=== PATIENT | female | born 1965 | race African-American/Black ===

== ENCOUNTER 2017-04-09 12:01 | Emergency (ER) | payer OTHER ==
[2017-04-09 12:08] VITALS: BP 148/97; PULSE 100; TEMP 98
--- NOTE | 2017-04-09 13:48 | PDOC ---
History of Present Illness - General Chief Complaint: Injury Stated Complaint: BACK PAIN Time Seen by Provider: 04/09/17 12:18 History Source: Patient Exam Limitations: No Limitations - History of Present Illness Initial Comments: 04/09/17 13:48 51 yr female c/o pain to left shoulder nad lower back (tailbone) after [place] . No head trauma no loc. pt took motrin with relief. pt is ambulating steady. 04/09/17 14:01 Past History - Past Medical History Allergies/Adverse Reactions: Allergies Allergy/AdvReac Type Severity Reaction Status Date / Time No Known Allergies Allergy Verified 04/09/17 12:08 Home Medications: Ambulatory Orders Glipizide 10 mg PO DAILY 04/09/17 Lisinopril 5 mg PO DAILY 04/09/17 Metformin HCl [Glucophage] 1,000 mg PO BID 04/09/17 Diabetes: Yes HTN: Yes Hypercholesterolemia: Yes - Psycho/Social/Smoking Cessation Hx Suicidal Ideation: No Smoking History: Never smoked Information on smoking cessation initiated: No Hx Alcohol Use: No Drug/Substance Use Hx: No Substance Use Type: None *Physical Exam - Vital Signs Last Vital Signs Temp Pulse Resp BP Pulse Ox 98 F 100 H 18 148/97 100 04/09/17 12:06 04/09/17 12:06 04/09/17 12:06 04/09/17 12:06 04/09/17 12:06 - Physical Exam General Appearance: Yes: Nourished, Appropriately Dressed HEENT: positive: EOMI, ANAHI Neck: negative: Tender Respiratory/Chest: positive: Lungs Clear, Normal Breath Sounds. negative: Chest Tender Cardiovascular: positive: Regular Rhythm, Regular Rate Musculoskeletal: positive: Normal Inspection, Vertebral Tenderness (coccyx area tender to touch ). negative: CVA Tenderness, CVA Tenderness (R), CVA Tenderness (L), Muscle Spasm Extremity: positive: Normal Capillary Refill, Normal Inspection, Normal Range of Motion. 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
== END 2017-04-09 13:56 | disposition home or self-care (01) ==
LOC: JERFT 12:01
DX: S39.012A Strain of muscle, fascia and tendon of lower back, initial encounter (principal); S46.812A Strain of other muscles, fascia and tendons at shoulder and upper arm level, left arm, initial encounter; W10.0XXA Fall (on)(from) escalator, initial encounter; Y93.89 Activity, other specified; Y92.520 Airport as the place of occurrence of the external cause; Y99.8 Other external cause status
CPT/HCPCS: 72220-TC; 73030-TC-LT; 99281-25

== ENCOUNTER 2018-08-20 23:28 | Emergency (ER) | payer BC ==
[2018-08-20 23:43] VITALS: TEMP 97.8; BMI 28.3
--- NOTE | 2018-08-21 00:12 | PDOC ---
History of Present Illness - General Chief Complaint: Chest Pain Stated Complaint: CHEST PAIN Time Seen by Provider: 08/20/18 23:41 History Source: Patient Exam Limitations: No Limitations - History of Present Illness Initial Comments: 08/21/18 00:07 Pt is a 53yo f with PMH of "atypical tachycardia", DM, HTN, HLD presenting to ED with complaints of chest pain that started this morning when patient was getting ready for work. Pt describes chest pain as a squeezing pain which is intermittent (lasts for a couple of seconds and returns minutes later) associated with shortness of breath. Pt says she feels as if the pain is getting tighter. She has had similar symptoms before when she gets tachycardic but it has not lasted this long before. She denies cough, fever, chills, headache, back pain, neck pain, abdominal pain, n/v/d, pain/swelling in the legs , recent travel, hemoptysis. Denies history of OH in the family. Denies tobacco use. She has taken a total of 2 81mg ASA today and Maalox. PMD: [facility] License Clerk: Jenaro PMH: see hpi PSH: none Meds: metformin, glyburide, atenolol, atorvastatin Allergies: diltiazem (throat swelling) Social: denies Past History - Past Medical History Allergies/Adverse Reactions: Allergies Allergy/AdvReac Type Severity Reaction Status Date / Time diltiazem [From Cardizem] Allergy Verified 08/20/18 23:43 Home Medications: Ambulatory Orders Glipizide 10 mg PO DAILY 04/09/17 Lisinopril 5 mg PO DAILY 04/09/17 Metformin HCl [Glucophage] 1,000 mg PO BID 04/09/17 Diabetes: Yes HTN: Yes Hypercholesterolemia: Yes - Suicide/Smoking/Psychosocial Hx Smoking History: Never smoked Have you smoked in the past 12 months: No Information on smoking cessation initiated: No Hx Alcohol Use: No Drug/Substance Use Hx: No Substance Use Type: None *Physical Exam - Vital Signs Last Vital Signs Temp Pulse Resp BP Pulse Ox 97.8 F 93 H 16 171/107 H 100 08/20/18 23:34 08/20/18 23:34 08/20/18 23:34 08/20/18 23:34 08/20/18 23:34 ED Treatment Course - LABORATORY CBC & Chemistry Diagram: 08/21/18 00:30 08/21/18 00:30 - RADIOLOGY Radiology Studies Ordered: Category Date Time Status CHEST PA & LAT [RAD] Stat Radiology 08/21/18 00:03 Ordered *DC/Admit/Observation/Transfer Diagnosis at time of Disposition: Chest pain Qualifiers: Chest pain type: unspecified Qualified Code(s): R07.9 - Chest pain, unspecified - Discharge Dispostion Disposition: HOME Condition at time of disposition: Good Decision to Admit order: No - Referrals Referrals: Chris Malone MD [Primary Care Provider] - - Patient Instructions Printed Discharge Instructions: DI for Chest Pain, DI for Atypical Chest Pain Additional Instructions: You were seen here today for evaluation of chest pain. All of your tests were normal. I highly recommend you follow up with your primary care doctor and your cadiologist for further management and evaluation of your chest pain. Please try to make this appointment as soon as possible, I suggest within this week. You can take aspirin when you have the chest pain. Please come back to the emergency room if your pain gets worse, your palpitations get worse, you feel more short of breath, you start having headaches or pain shooting towards your back or if any new concerning symptom develops. Thank you - Post Discharge Activity
[2018-08-21 00:46] LABS: BASO % 1.5 % (0-2.0); HEMATOCRIT 39.8 % (32.4-45.2); HEMOGLOBIN 13.2 GM/dL (10.7-15.3); LYMPH % 50.7 % (8-40); MCHC 33.1 g/dl (32.0-36.0); MEAN CELL VOLUME 84.7 fl (80-96); MEAN PLT VOLUME 8.8 fl (7.5-11.1); MONO % 4.8 % (3.8-10.2); PLATELET COUNT 280 K/MM3 (134-434); RDW 14.7 % (11.6-15.6); WHITE BLOOD COUNT 8.7 K/mm3 (4.0-10.0)
--- NOTE | 2018-08-21 01:04 | PDOC ---
Attending Attestation - HPI HPI: 08/21/18 01:13 The patient is a 53 year old male with past medical history significant for DM, HTN, HLD presents to the emergency department with chest pain. The patient presents with intermittent chest pain that presented earlier today, thats squeezing in quality, associated with shortness of breath. The patient denies fever, chills, nausea, vomiting, diarrhea, constipation, leg swelling or calf pain. Allergies: diltiazem Social history: None reported Surgical history: None reported PCP: Dr. Bradshaw - Medical Decision Making 08/21/18 01:13 Documentation prepared by Margaret Wilks, acting as medical imaging technician for Jonathan Hernandez MD. <Margaret Wilks - Last Filed: 08/21/18 01:12> - Resident Resident Name: Skye Boggs - ED Attending Attestation I have performed the following: I have examined & evaluated the patient, The case was reviewed & discussed with the resident, I agree w/resident's findings & plan, Exceptions are as noted - Physicial Exam PE: 08/21/18 01:50 General: Well-nourished well-developed individual, no acute distress HEENT: Throat: Normal, tonsils normal, no erythema or exudate Neck: Supple, no meningeal signs, no lymphadenopathy Eyes::Pupils equal reactive and round, extraocular motion intact Chest: Nontender to palpation Cardiac: S1-S2 normal, regular rate and rhythm, no murmurs rubs or gallops Respiratory: Lungs clear to auscultation bilateral Abdomen: Soft, nondistended, normal bowel sounds, nontender to palpation diffusely Extremities: Warm, dry, no cyanosis, clubbing, or edema Skin: No rashes Neuro: Alert and oriented x3, nonfocal exam, grossly intact, normal gait Psych: Normal mood and affect - Medical Decision Making 08/21/18 01:49 53F with risk factors episodes of chest tightness, palpitations, sob, asymptomatic on initial encounter low risk cp eval for acs 08/21/18 01:51 <Jonathan Hernandez - Last Filed: 08/21/18 01:52>
[2018-08-21 01:11] LABS: ALBUMIN 3.9 g/dl (3.4-5.0); ALK PHOS 117 U/L (45-117); ANION GAP 9 MMOL/L (8-16); BILIRUBIN,TOTAL 0.3 mg/dL (0.2-1); BLOOD UREA NITROGEN 16 mg/dL (7-18); CALCIUM 8.8 mg/dL (8.5-10.1); CHLORIDE 103 mmol/L (98-107); CO2 27 mmol/L (21-32); CREATININE 0.9 mg/dL (0.55-1.3); GLUCOSE,RANDOM 191 mg/dL (74-106); POTASSIUM 4.4 mmol/L (3.5-5.1); SGOT/AST 28 U/L (15-37); SGPT/ALT 18 U/L (13-61); SODIUM 139 mmol/L (136-145); TOT PROT 7.4 g/dl (6.4-8.2)
[2018-08-21 01:50] LABS: URINE APPEARANCE CLEAR; URINE BILIRUBIN NEGATIVE (<2.0 mg/dL); URINE COLOR LTYELLOW; URINE GLUCOSE (UA) 1+ (NEGATIVE); URINE KETONE NEGATIVE (NEGATIVE); URINE LEUK ESTERASE NEGATIVE (NEGATIVE); URINE NITRITE NEGATIVE (NEGATIVE); URINE PROTEIN NEGATIVE (NEGATIVE); URINE UROBILINOGEN NEGATIVE mg/dL (0.2-1.0)
[2018-08-21 03:25] VITALS: BP 147/72; PULSE 74
--- NOTE | 2018-08-21 11:54 | EKG ---
Test Reason : Blood Pressure : / mmHG Vent. Rate : 085 BPM Atrial Rate : 085 BPM P-R Int : 158 ms QRS Dur : 080 ms QT Int : 366 ms P-R-T Axes : 041 004 026 degrees QTc Int : 435 ms NORMAL SINUS RHYTHM INFERIOR INFARCT , AGE UNDETERMINED CANNOT RULE OUT ANTERIOR INFARCT (CITED ON OR BEFORE 09-DEC-2015) ABNORMAL ECG WHEN COMPARED WITH ECG OF 09-DEC-2015 11:03, NO SIGNIFICANT CHANGE WAS FOUND Confirmed by JERMAN SCOTT MD ([id number]) on 08/21/2018 11:53:44 AM Referred By: VINICIUS Confirmed By:JERMAN SCOTT MD
== END 2018-08-21 01:32 | disposition home or self-care (01) ==
LOC: JER 23:28
DX: R07.9 Chest pain, unspecified (principal); I10 Essential (primary) hypertension; E11.9 Type 2 diabetes mellitus without complications; E78.00 Pure hypercholesterolemia, unspecified
CPT/HCPCS: 36415; 71046-TC-FY; 80053; 81003; 84484; 85025; 93005; 93010; 99283-25